=== PATIENT | male | born 1975 | race Asian ===

== ENCOUNTER 2021-11-25 17:51 | Emergency (ER) | payer BC, SELFPAY ==
[2021-11-25 18:00] VITALS: BP 122/84; PULSE 62; RESP 16; TEMP 36.9; O2SAT 99
--- NOTE | 2021-11-25 18:17 | ED.URI ---
HPI - URI/Sore Throat General Chief Complaint: Upper Respiratory Infection Stated Complaint: ITCHY THROAT/NASAL CONGESTION Time Seen by Provider: 11/25/21 17:54 Source: patient Mode of arrival: ambulatory Limitations: no limitations History of Present Illness HPI Narrative: Mr. Ceron is a 46-year-old male patient presenting to the clinic today with complaints of nasal congestion, cough, and itchy throat x2 months. He reports he has noticed a lot of postnasal drip/mucus in the back of his throat. He denies any fever or chills. MD elicited complaint: sore throat (Throat irritation/postnasal drip) and nasal congestion Related Data Allergies Allergy/AdvReac Type Severity Reaction Status Date / Time No Known Allergies Allergy Unverified 11/25/21 18:16 Review of Systems Review of Systems: Pertinent positives per HPI. Patient denies any fever, chills, rash, headache, visual changes, dizziness, shortness of breath, chest pain, palpitations, nausea, vomiting, diarrhea, constipation, abdominal pain, or any urinary issues. PMFSH Comments At the time of my signature, I reviewed and agree with the nursing past medical, surgical, social, and family history. There is no relevant family history pertinent to the patient complaint. Exam Narrative: General: Well-developed, well nourished, in no apparent distress Head: Normocephalic, atraumatic Eyes: Pupils equally round and reactive to light bilaterally, EOM intact, sclera and conjunctive clear, no discharge, lids normal Ears: TMs intact and clear, ear canals clear, no drainage, grossly hearing normal. Nose: Nares patent, clear nasal discharge, moderate inflammation, no sinus tenderness. Mouth: Oral pharynx without lesions or masses, good dentition, MMM. PND Neck: Supple, trachea midline, no enlargement of anterior or posterior cervical nodes, no thyroid masses or goiter palpable. Cardio: Regular rate and rhythm, s1 and s2 normal, no murmur appreciated. Resp: Clear to auscultation bilaterally, no rhonchi, rales, wheezing or rubs Course Course Emergency Course: Portions of this record may have been created with voice recognition software. Level of Care: Express Care Visit Vital Signs Vital signs: Vital Signs Temperature 36.9 C 11/25/21 18:00 Pulse Rate 62 11/25/21 18:00 Respiratory Rate 16 11/25/21 18:00 Blood Pressure 122/84 11/25/21 18:00 Pulse Oximetry 99 11/25/21 18:00 Temperature 36.9 C 11/25/21 18:00 Pulse Rate 62 11/25/21 18:00 Respiratory Rate 16 11/25/21 18:00 Blood Pressure 122/84 11/25/21 18:00 Pulse Oximetry 99 11/25/21 18:00 Vital signs reviewed MDM - URI/Sore Throat MDM Narrative Medical decision making narrative: At the time of visit patient is resting comfortably on exam table. Patient has allergic rhinitis with postnasal drip. I will give him a prescription for some prednisone to help dry up the congestion and inflammation and follow-up with fluticasone and Zyrtec. Supportive measures were discussed with the patient he voiced understanding of discharge instructions and agrees to treatment plan. Differential Diagnosis Differential diagnosis: Likely sinusitis, viral infection, influenza and pharyngitis Discharge Plan Discharge Clinical Impression: PND (post-nasal drip) Allergic rhinitis Qualifiers: Allergic rhinitis trigger: unspecified Allergic rhinitis seasonality: unspecified Qualified Code(s): J30.9 - Allergic rhinitis, unspecified Patient Disposition: Home, Self-Care Condition: Stable Instructions: Antibiotic Form, Allergic Rhinitis (ED), Postnasal Drip (DC) Additional Instructions: Take prescription medications only as prescribed-prednisone Increase fluids and stay well hydrated Tylenol/motrin for pain/fever Flonase and OTC antihistamines such as zyrtec or claritin as directed Vicks vapor rub to open sinuses Sinus rinses for congestion Cepacol spray, cough drops, throat lozenges, w
== END 2021-11-25 18:29 | disposition home or self-care (01) ==
PROVIDERS: Emergency Provider Nurse Practitioner Family; PCP Emergency Medicine
DX: R09.82 Postnasal drip (principal); J30.9 Allergic rhinitis, unspecified
CPT/HCPCS: 99203; G0463

== ENCOUNTER → 2023-05-17 14:46 | Outpatient (CLI) | payer BC, SELFPAY ==
--- NOTE | ~2023-05-17 | CT_ITS ---
EXAMINATION: CT sinus wo con DATE: 05/17/2023 14:58 INDICATION: Chronic sinusitis TECHNIQUE: Computed tomography (CT) of the paranasal sinuses was performed without contrast. Iterativ e reconstruction technique was employed. Exam dose: 294.16 mGy-cm total exam DLP. COMPARISON: None FINDINGS: Mild leftward bowing of the nasal septum. Prominent soft tissue swelling of the nasal turbinates, right mildly greater than left. The ostiomeatal units are patent bilaterally. There is mild focal mucoperiosteal thickening in the posteromedial aspect of the right maxillary sinu s. The paranasal sinuses otherwise are clear. The mastoid air cells are well-developed and aerated. IMPRESSION: Mild leftward bowing of nasal septum Soft tissue prominence of the nasal turbinates, mildly greater on the left Mild focal mucoperiosteal thickening of posteromedial right maxillary sinus; otherwise clear sinuses and mastoid air cells Reviewed, dictated and finalized at [facility]. Reviewed, dictated and finalized at [facility] [employer] IMPRESSION: Mild leftward bowing of nasal septum Soft tissue prominence of the nasal turbinates, mildly greater on the left Mild focal mucoperiosteal thickening of posteromedial right maxillary sinus; ot herwise clear sinuses and mastoid air cells
== END ==
PROVIDERS: PCP Emergency Medicine; Visit Provider Emergency Medicine
DX: J32.9 Chronic sinusitis, unspecified (principal); J34.2 Deviated nasal septum
CPT/HCPCS: 70486